=== PATIENT | female | born 1970 | race Two or more races ===

== ENCOUNTER → 2024-02-23 | Outpatient (CLI) | payer MEDICAID, SELFPAY ==
--- NOTE | 2024-02-23 08:15 | XR_ITS ---
Examination: Screening digital mammography, bilateral Computer aided detection 3-D breast Tomosynthesis, bilateral Date and time of exam: February 23, 2024 0819 hours No priors Indication: Screening Technique: Nonmagnified MLO, CC views of the breasts to been obtained, reconstructed from 3-D Tomosynthesis images. R2 computer aided detection program utilized for evaluation of suspicious masses and/or abnormal calcifications. 3-D Tomosynthesis images obtained. Findings: Scattered areas of fibroglandular density. Benign calcifications. No interval suspicious masses Impression: BI-RADS category II: Benign Findings. Recommend 1 year follow-up mammogram.
== END | disposition home or self-care (01) ==
PROVIDERS: Referring Provider Physician Assistant; Visit Provider Physician Assistant
DX: Z12.31 Encounter for screening mammogram for malignant neoplasm of breast (principal); R92.323 Mammographic fibroglandular density, bilateral breasts; R92.1 Mammographic calcification found on diagnostic imaging of breast
CPT/HCPCS: 77063; 77067

== ENCOUNTER → 2024-03-22 | Outpatient (CLI) | payer MEDICAID, SELFPAY ==
[2024-03-21 16:55] LABS: HCG Qualitative,Urine Negative
--- NOTE | 2024-03-22 13:00 | XR_ITS ---
Examination: MRI pelvis with intravenous contrast. MRI pelvis without intravenous contrast. Date and time of exam: March 22, 2024 1435 hours INDICATIONS: Amenorrhea 1 year follow-up I heavy vaginal bleeding 5 days January 28, 2024 Technique: Multiple axial, sagittal and coronal sections of the pelvis obtained. Transverse images, TR 6020, TE 107. T1 weighted transverse images, TR 582, TE 9.5. T2-weighted sagittal images, TR 4000, TE 105. T2-weighted sagittal images, TR 4000, TE 5. Coronal images, TR 4210, TE 107. Axial and coronal images are obtained post 20 cc intravenous injection, gadolinium. Findings: Uterus 8.0 x 4.5 x 5.5 cm Endometrial stripe 4 mm Postcontrast images do not demonstrate abnormal enhancement no uterine mass or enhancement of the endometrium No adnexal mass Contracted urinary bladder No free fluid in the pelvis IMPRESSION: No enhancing uterine or endometrial mass Recommend 6 month follow-up transvaginal pelvic sonography
== END | disposition home or self-care (01) ==
PROVIDERS: PCP Physician Assistant; Referring Provider Physician Assistant; Visit Provider Physician Assistant
DX: N85.00 Endometrial hyperplasia, unspecified (principal); Z32.00 Encounter for pregnancy test, result unknown
CPT/HCPCS: 72197; 81025; A9579